=== PATIENT | female | born 1950 | race Caucasian/White ===

== ENCOUNTER 2023-05-16 08:11 | Outpatient (AMB) | payer MEDICARE, OTHER, SELFPAY ==
--- NOTE | 2023-05-16 08:16 | AM.OFFWIN_ITS ---
Intake Vital Signs 05/16/23 08:18 Height 5 ft 2 in Weight 162 lb BMI 29.6 BP 118/72 Blood Pressure Location Lt brachial Position Sitting Pulse 75 Pulse Source Pulse Oximeter Temp 97.4 F Temp Source Oral Pulse Oximetry (%) 98 Oxygen Delivery Method Room Air Intake Visit Reasons: [employer] Fatigue/No eating/Stomach bug Intake Note: pt is here for c.o fatigue, no appetite, about 1x week Patient Tobacco Use Status: Never used Tobacco Allergies No Known Allergies Allergy (Verified 05/16/23 08:19) Do you need a note to return to daycare/school/sports/work: Yes HPI [employer] Fatigue/No eating/Stomach bug HPI Details 73-year-old female presents to the [facility] for a sick visit. For the past week, patient is experiencing symptoms of fatigue and diarrhea. Three days ago she started having symptoms of postnasal drip and congestion. Nonproductive cough. No fevers or chills. 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 Nonsmoker. [facility] Social History Patient Tobacco Use Status: Never used Tobacco Physical Exam Vital Signs: Last Vital Signs Temp 97.4 F 05/16/23 08:18 Pulse 75 05/16/23 08:18 BP 118/72 05/16/23 08:18 Pulse Ox 98 05/16/23 08:18 Oxygen Delivery Method Room Air 05/16/23 08:18 BMI result Body Mass Index 29.6 Const General: cooperative and healthy appearing Nutritional Appearance: well nourished Orientation/consciousness: patient oriented x3 Limitations: no limitations HEENT Head: Yes normal to inspection Eyes General: appearance normal, both eyes and all related structures Neck Neck: Yes normal visual inspection Chest Chest palpation & inspection: normal palpation of entire chest wall Resp Effort & Inspection: normal respiratory effort Neuro General: patient oriented x3 Assessment & Plan Assessment & Plan (1) Fatigue: Code(s): R53.83 - Other fatigue Plan: Blood work has been ordered. Empirical treatment of diarrhea with Cipro. If symptoms do not improve to follow-up here. Note for work given. Orders: Orders Complete Blood Count no Diff Today R53.83 - Other fatigue Basic Metabolic Panel Today R53.83 - Other fatigue Thyroid Stimulating Hormone Today R53.83 - Other fatigue Liver Panel Today R53.83 - Other fatigue Medications: New ciprofloxacin HCl 250 mg PO BID 10 tabs 0RF Coding Level of Care Code Est Pt Level 4 (01071) Diagnoses Fatigue R53.83
[2023-05-16 08:18] VITALS: BP 118/72; PULSE 75; TEMP 36.3; O2SAT 98; BMI 29.6
== END 2023-05-16 09:02 | disposition home or self-care (01) ==
PROVIDERS: Visit Provider Internal Medicine
DX: R53.83 Other fatigue (principal)
CPT/HCPCS: 99214

== ENCOUNTER 2023-05-16 08:49 | Outpatient (REF) | payer MEDICARE, OTHER, SELFPAY ==
[2023-05-16 12:07] LABS: Hematocrit 44.8 % (37.0-47.0); Hemoglobin 15.1 g/dl (12.0-16.0); Mean Corpuscular HGB Conc 33.7 g/dl (31.0-35.0); Mean Corpuscular Hemoglobin 32.1 pg (27.0-33.0); Mean Corpuscular Volume 95.3 fL (80.0-98.0); Mean Platelet Volume 9.7 fL (9.4-12.3); Platelet Count 223 X10*3/uL (160-400); Red Cell Distribution Width 12.5 % (11.0-16.0); White Blood Count 6.2 X10*3/uL (4.8-10.8)
[2023-05-16 12:25] LABS: Alanine Aminotransferase 39 U/L (0-31); Alkaline Phosphatase 48 U/L (39-117); Anion Gap 10 (12-20); Aspartate Amino Transferase 44 U/L (5-31); Bilirubin Direct 0.3 mg/dL (0.0-0.5); Bilirubin Total 0.6 mg/dL (0.0-1.0); Blood Urea Nitrogen 16 mg/dL (9-16); Calcium 9.3 mg/dL (8.4-10.2); Carbon Dioxide 32 mmol/L (22-29); Chloride 101 mmol/L (96-108); Estimated Glomerular Filt Rate 50; Glucose Random 91 mg/dL (60-115); Sodium 140 mmol/L (135-145); Thyroid Stimulating Hormone 3.71 uIU/mL (0.32-4.0); Total Protein 7.9 g/dL (6.5-8.0)
== END 2023-05-16 08:50 | disposition home or self-care (01) ==
LOC: HO.HMGCLDS 08:49
PROVIDERS: PCP Student in an Organized Health Care Education/Training Program; Visit Provider Internal Medicine
DX: R53.83 Other fatigue (principal)
CPT/HCPCS: 36415; 80048; 80076; 84443; 85027